=== PATIENT | female | born 1945 | race Two or more races ===

== ENCOUNTER 2019-09-10 15:56 | Inpatient (IN) | payer OTHER ==
[~2019-09-10] VITALS: Ht 160 cm; Wt 68.0 kg
[2019-09-10] MEDS ORDERED: SYNTHROID50 MCG PO (16:24)
[2019-09-16] MEDS ORDERED: COZAAR50 MG PO (10:43)
[2019-09-16] MEDS ORDERED: INTESTINEX680 M1 PO (10:43)
== END 2019-09-16 15:42 | disposition home or self-care (01) | DRG 393 ==
LOC: ER 15:56 → ICU-2 17:14 → SEC-K 09-11 13:34 → SURG 09-11 18:54
PROVIDERS: ADMIT Surgery
PROC: 02HV33Z Insertion of Infusion Device into Superior Vena Cava, Percutaneous Approach (ICD-10-PCS; principal; 2019-09-11)
PROC: 3E0436Z Introduction of Nutritional Substance into Central Vein, Percutaneous Approach (ICD-10-PCS; 2019-09-11)
PROC: 4A12X4Z Monitoring of Cardiac Electrical Activity, External Approach (ICD-10-PCS; 2019-09-11)
PROC: BW21Y0Z Computerized Tomography (CT Scan) of Abdomen and Pelvis using Other Contrast, Unenhanced and Enhanced (ICD-10-PCS; 2019-09-14)
DX: K66.8 Other specified disorders of peritoneum (principal); K63.1 Perforation of intestine (nontraumatic); E44.0 Moderate protein-calorie malnutrition; K57.30 Diverticulosis of large intestine without perforation or abscess without bleeding; R00.1 Bradycardia, unspecified